=== PATIENT | male | born 1985 | race Caucasian/White ===

== ENCOUNTER 2022-06-23 18:56 | Observation (INO) | payer BC ==
[~2022-06-23] VITALS: Ht 193 cm; Wt 95.5 kg
[~2022-06-23 18:56] MED LIST: NO HOME MEDICATIONS; PRIL40 PO
[2022-06-23 19:37] LABS: COLLECTION METHOD CLEAN CATCH
[2022-06-23 19:42] LABS: BASO % 0.2 % (0.0-2.0); EOS # 0.2 K/mm3 (0.0-0.7); EOS % 1.9 % (0.0-4.0); GRAN # 6.4 K/mm3 (1.4-6.5); GRAN % 74.6 % (42.2-75.2); HEMATOCRIT 48.1 % (42.0-52.0); HEMOGLOBIN 16.5 g/dl (13.5-18.0); LYMPH # 1.3 K/mm3 (1.2-3.4); LYMPH % 14.5 % (20.0-51.0); MEAN CELL VOLUME 93 fl (80.0-100.0); MEAN CORPUSCULAR HEMOGLOBIN 32 pg (27-31); MEAN CORPUSCULAR HGB CONC 34 g/dl (33.0-37.0); MEAN PLATELET VOLUME 9.9 fl (7.4-10.4); MONO # 0.7 K/mm3 (0.1-0.6); MONO % 8.5 % (1.7-9.3); PLATELET COUNT 154 K/mm3 (130-400); RED BLOOD COUNT 5.19 M/mm3 (4.20-5.60); REDCELL DISTRIBUTION WIDTH-CV 11.9 % (11.5-14.5)
[2022-06-23 19:46] LABS: URINE APPEARANCE Clear (CLEAR/HAZY); URINE BLOOD TRACE-INTACT (NEGATIVE); URINE COLOR Yellow (YELLOW); URINE GLUCOSE Negative (NEGATIVE); URINE KETONE TRACE (NEGATIVE); URINE NITRATE Negative (NEGATIVE); URINE PROTEIN(semi-quant) Negative (NEGATIVE); URINE UROBILINOGEN 0.2 E.U/dL (0.2-1.0)
[2022-06-23 19:47] LABS: MUCOUS Present (NOT PRESENT); SQUAMOUS EPITHELIAL None Seen /hpf (0-10); URINE BACTERIA None Seen /hpf (NONE SEEN); URINE RBC 0-2 /hpf (0-2)
[2022-06-23 20:03] LABS: ALBUMIN 4.3 gm/dL (3.5-5.0); BILIRUBIN,TOTAL 0.8 mg/dL (0.2-1.2); CALCIUM 9.2 mg/dL (8.4-10.2); CREATININE, serum 1.14 mg/dL (0.72-1.25); TOTAL PROTEIN 7.8 gm/dL (6.2-8.1)
[2022-06-23] MEDS ORDERED: NORCO 325 MG-51 TAB PO (23:07)
[2022-06-23] MEDS ORDERED: MOTRIN 600600 MG/TAB PO (23:07)
[2022-06-24] VITALS (10 sets, daily range): BP systolic 114–122; BP diastolic 54–65; PULSE 56–72; TEMP 98–98.6
--- NOTE | 2022-06-24 00:30 | NUR ---
PT arrived to room 323 per bed from PACU, report rec'd, LR infusing per PIV in RAC, on RA, VSS, awake and alert, x3 lap sites covered with skin glue, c/o mild pain @ this time. oriented to room and poc. abd firm, rounded, no bs heard @ this time, started pt with ice chips, will advance as maribell. pt has not voided since before surgery. call light given, at bedside.
--- NOTE | 2022-06-24 00:48 | NUR ---
pt now c/o moderate pain, no N/V with ice chips, [place] given po for pain, pts leaving and will return in the morning.
--- NOTE | 2022-06-24 05:32 | NUR ---
PT up and ambulated to bathroom, voided, pain controlled with po pain meds, lap sites x3 CDI, IVF infusing @75cc/hr, no N/V, regular diet ordered for breakfast.
--- NOTE | 2022-06-24 08:21 | NUR ---
Pt. sitting up in bed. Pt. is A&OX3, assessment complete. INT to lt. ac patent. Pt. tolerateing PO. Abd. incisions x3, well approximated. Pt. reprots pain at a 2 on pain scale. Pt. is independent in the room. Pt. denies further needs, call light within reach.
--- NOTE | 2022-06-24 10:54 | NUR ---
MICKEY met with the patient, his (Venecia, ph#[phone]), and [id number] to discuss discharge plan. The patient lives in [place] with his and their three children. He reports independence with ADLs and does not have any DME. The patient's PCP is Dr. Herminio Blanchard and he receives his medications from [facility]. The patient does not have a DPOA-HC in EMR, but he states that he does have one completed and that he designated his . The patient plans to return home with his family upon discharge. No additional needs at this time. *Discharge plan: home with *
[2022-06-24] MEDS ORDERED: AMOXICILLIN 8751 TAB PO (12:50)
--- NOTE | 2022-06-24 13:30 | NUR ---
Pt. has met discharge criteria. Reviewed discharge instructions with pt. Pt. voices understanding. INT discontinued from lt. ac. Escorted out by this nurse.
== END 2022-06-24 13:30 | disposition home or self-care (01) ==
LOC: COL.ER 18:56 → SURG 20:36
PROVIDERS: Nurse Practitioner Primary Care; ADMIT Surgery
DX: K35.33 Acute appendicitis with perforation, localized peritonitis, and gangrene, with abscess (principal)
CPT/HCPCS: G0378; J0690; J1100; J1170; J1885; J2405; J2704; J3010; J7030; J7120; Q9967